=== PATIENT | male | born 1990 ===

== ENCOUNTER 2024-08-29 00:09 | Emergency (ER) | payer OTHER, SELFPAY ==
[2024-08-29 00:13] VITALS: BP 130/78
--- NOTE | 2024-08-29 00:30 | ED.GENMED ---
History of Present Illness
General
Chief Complaint: Bowel Problem
Source: patient
Time Seen by Provider: 08/29/24 00:29
Nursing documentation reviewed up to this point in time: agreed with
History of Present Illness
History of Present Illness:
Pleasant 34-year-old male presents with rectal pain. He states he has been having rectal pain for the last 10 years. He was diagnosed with hemorrhoids. He stated lately he has been having hard stools causing pain. He was in [employer] [facility] [email or web address] last
week and seen in the emergency department for GERD. He was started on H. pylori medication. Denies fever, chills, nausea, vomiting. Reports no abdominal pain.
Review of Systems
Review of Systems
Allergies reviewed?: Yes
All Other Systems: ROS reviewed and negative except as documented in HPI and ROS
Constitutional: Reports no symptoms
EENT: Reports no symptoms
Respiratory: Reports no symptoms
Cardiac: Reports no symptoms
ABD/GI: Reports constipated (Hard stools); Denies abdominal pain, nausea, vomiting, bloody stools, black stools, anorexia or other
: Reports no symptoms
Musculoskeletal: Reports no symptoms
Skin: Reports no symptoms
Neurological: Reports no symptoms
Endocrine: Reports no symptoms
Hematologic/Lymphatic: Reports no symptoms
Psychiatric: Reports no symptoms
Phy Exam
General Physical Exam
General Presentation: well appearing and no apparent distress
General Skin: warm and dry
ENT Exam
ENT Exam: EOMI and normocephalic
Pulmonary Exam
Pulmonary Exam: no respiratory distress
Gastrointestinal Exam
Gastrointestinal Exam: normal bowel sounds, non tender, soft, non distended and other (Hemorrhoid, nonthrombosed)
Neurological Exam
Neurological Exam: alert and oriented x3
Skin Exam
Skin Exam: normal color
Psychiatric Exam
Psychiatric Exam: normal mood/affect
Course
Orders/Labs/Results
Orders:
Orders
08/29/24 00:38
Docusate Sodium [Colace] 100 mg PO NOW STA
08/29/24 00:43
Anusol Hc Suppository [Anusol Hc] 25 mg RECTAL NOW STA
Vital Signs
Initial and Last Documented VS:
Initial Vital Signs
Temp Pulse Resp BP Pulse Ox
98 F 80 22 130/78 98
08/29/24 00:13 08/29/24 00:13 08/29/24 00:13 08/29/24 00:13 08/29/24 00:13
Last Documented Vital Signs
Temp Pulse Resp BP Pulse Ox
98 F 80 22 130/78 98
08/29/24 00:13 08/29/24 00:13 08/29/24 00:13 08/29/24 00:13 08/29/24 00:13
*Critical Care Note
Total Time (30-74mins, 75-104mins- exclusive of procedures): Not Applicable
Update Note
Update Note:
In the presence of nurse, rectal exam was performed. Patient had 2 non-thrombosed hemorrhoids on the left side. Patient had no pain during the rectal exam. He states that the pain comes and goes and currently he is not having the pain. He does
report having small 'nuggets 'of stool. He will get prescribed a stool softener as well as Anusol suppositories. He will follow-up with colorectal surgery.
ED Attending Note
-
Portions of this chart may have been created with voice recognition software.� Occasional wrong word or��sound alike� substitutions may have occurred due to the inherent limitations of voice recognition software.
Discharge Plan
Departure
Patient Disposition: Home (Routine Discharge)
Date of Disposition: 08/29/24
Time of Disposition: 00:41
Patient with high blood pressure during this ER visit?: Yes
Discharge Problem:
Hemorrhoid
Instructions: Hemorrhoids, BLOOD PRESSURE
Prescriptions:
New
hydrocortisone acetate [Anusol-HC] 25 mg suppository
25 mg CA BID Qty: 12 0RF
docusate sodium [Colace] 100 mg capsule
100 mg PO DAILY Qty: 20 0RF
Referrals:
Jeremiah Ding MD [Active] - Call in 1-3 days for appt
Activity Restrictions/Additional Instructions:
It was a pleasure meeting you and taking part in your care. We hope for your continued healing and wellness.
Please read discharge instructions in their entirety. However, they are for general education and may not describe your exact diagnosis at discharge. Information on your ER visit and medical conditions were discussed with you along with appropriate
follow up information...
If indicated, please take your medications as instructed and indicated on discharge paperwork.
Please schedule a follow up appointment as directed. Call to schedule an appointment
Please return to the emergency department with ANY change in, persisting, or worsening of symptoms. If any of your symptoms do not improve, or persist, or become more severe within 6-12 hours, please return to the emergency department for further
care.
Please return to the emergency department if you develop a headache, neck pain/stiffness, fever greater than 100.4F, chest pain, shortness of breath, persistent nausea, vomiting, slurred speech, difficulty walking, numbness/tingling, weakness, signs
of infection or any other symptoms that are worrisome to you.
If you have any questions or concerns please do not hesitate to call the Hospital at or E-mail me directly at [email or web address]
Interventions
Interventions:
*Risk Screen - Suicide Last Done: 08/29/24 00:13
*General Assessment Last Done: 08/29/24 00:41
*Neglect/Abuse Screening Last Done: 08/29/24 00:13
ED- Fall Risk Assessment Last Done: 08/29/24 00:41
*ED COVID-19 Vaccine History Last Done: 08/29/24 00:41
OJ-Aznsck-Pglucqhjpb Assessment Last Done: 08/29/24 00:41
Discharge Date and Time
Print Language: CZECH
[2024-08-29] MEDS: COLACE 100 MG PO (00:42)
[2024-08-29] MEDS: ANUSOL HC 25 MG RECTAL (00:45)
== END 2024-08-29 00:47 | disposition home or self-care (01) ==
LOC: EMR 00:09
PROVIDERS: EMERGENCY PHYSICIAN Student in an Organized Health Care Education/Training Program; FAMILY PHYSICIAN Family Medicine
DX: K64.9 Unspecified hemorrhoids (principal); K21.9 Gastro-esophageal reflux disease without esophagitis
CPT/HCPCS: 99282